=== PATIENT | female | born 1995 | race Caucasian/White ===

== ENCOUNTER 2016-12-29 22:01 | Emergency (ER) | payer OTHER ==
[2016-12-29 22:10] VITALS: BP 113/65; PULSE 71; TEMP 98.4; BMI 23.2
[2016-12-29] MEDS ORDERED: ACETAMINOPHEN 325 MG TABLET (FP) PO ONE (22:28)
[2016-12-29] MEDS ORDERED: ACETAMINOPHEN 325 MG TABLET (FP) ONE (22:29)
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
== END 2016-12-29 22:54 | disposition home or self-care (01) ==
LOC: JERFT 22:01
DX: S09.8XXA Other specified injuries of head, initial encounter (principal); G44.319 Acute post-traumatic headache, not intractable; M54.2 Cervicalgia; V49.49XA Driver injured in collision with other motor vehicles in traffic accident, initial encounter; Y92.414 Local residential or business street as the place of occurrence of the external cause; Y93.89 Activity, other specified
CPT/HCPCS: 99281-25

== ENCOUNTER 2016-12-30 18:45 | Emergency (ER) | payer OTHER ==
[2016-12-30 18:49] VITALS: BP 144/75; PULSE 78; TEMP 98.7; BMI 30.2
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
== END 2016-12-30 21:46 | disposition home or self-care (01) ==
LOC: JER 18:45 → JERFT 18:45
DX: F07.81 Postconcussional syndrome (principal); G44.319 Acute post-traumatic headache, not intractable; V43.52XD Car driver injured in collision with other type car in traffic accident, subsequent encounter
CPT/HCPCS: 70450-TC; 84703; 99281-25